=== PATIENT | female | born 1965 | race Two or more races ===

== ENCOUNTER 2021-07-17 16:32 | Inpatient (IN) ==
[2021-07-17] MEDS ORDERED: Lactated Ringers 1000 ml BAG IV.FLUID IV ONE (17:06)
[2021-07-17] MEDS ORDERED: Piperacillin/Tazobac ADVAN 3.375 GM in NS 0.9% 100 ml BAG 100 ML IV ONE (17:23)
[2021-07-17 17:42] LABS: ABS Lymphocytes 0.7 10^3/ul (1.0-4.8); ABS Monocytes 0.7 10^3/ul (0-0.8); ABS Neutrophils 11.2 10^3/ul (1.5-7.7); Eosinophil % 0.4 %; Hematocrit 40 % (35-47); Hemoglobin 14.2 g/dL (12.0-16.0); Lymphocyte % 5.4 %; Mean Corpuscular HGB Conc 35 g/dL (31-36); Mean Corpuscular Hemoglobin 33 pg (27-31); Mean Corpuscular Volume 95 fL (80-97); Mean Platelet Volume 7.9 fL (7.4-10.4); Platelet Count 288 10^3/uL (150-450); Red Blood Count 4.25 10^6 /uL (3.70-4.87); Red Cell Distribution Width 14 % (10-15); White Blood Count 12.7 10^3/uL (3.5-10.8)
[2021-07-17 17:55] LABS: Urine Appearance Cloudy; Urine Bilirubin Negative (Negative); Urine Blood 2+ (Negative); Urine Color Yellow; Urine Glucose Negative (Negative); Urine Ketones Trace (Negative); Urine Nitrite Negative (Negative); Urine Protein Negative (Negative); Urine Specific Gravity 1.012 (1.002-1.030); Urine Urobilinogen Negative (Negative)
[2021-07-17 17:57] LABS: Urine Bacteria 1+ (Absent); Urine Red Blood Cell 2+(6-10/hpf) (Absent); Urine Squamous Epithelial Cell Present (Absent); Urine White Blood Cell Trace(0-5/hpf) (Absent)
[2021-07-17 18:17] LABS: Potassium 3.8 mmol/L (3.5-5.0)
[2021-07-17 18:18] LABS: Albumin 4.2 g/dL (3.2-5.2); Albumin/Globulin Ratio 1.5 (1-3); C Reactive Protein 94.51 mg/L (<8.01); Calcium 9.3 mg/dL (8.6-10.3); Globulin 2.8 g/dL (2-4); Total Bilirubin 0.9 mg/dL (0.2-1.0); eGFR CKD-EPI 89.4 (>60)
[2021-07-17] MEDS ORDERED: Iohexol 300 (CONTRAST) 10 ML SDV IV ONE (18:22)
[2021-07-17] MEDS ORDERED: Morphine 2 MG/ML SYRINGE IV ONE (22:50)
[2021-07-17] MEDS ORDERED: Zosyn per Pharmacy NOTE FOLLOW UP SCH (23:00)
[2021-07-17] MEDS: ZOSYN 3.375 GM Q8H per EXTENDED INFUSION IV SCH (23:21)
[2021-07-17] MEDS ORDERED: Albuterol HFA INHALER 8 gm MDI INH PRN (23:53)
[2021-07-17] MEDS ORDERED: Albuterol HFA INHALER 8 gm MDI INH ONE (23:57)
[2021-07-18] MEDS ORDERED: Acetaminophen IV 1 GM/100ML 100 ML IV ONE (02:22)
[2021-07-18 05:02] LABS: ABS Lymphocytes 1.7 10^3/ul (1.0-4.8); ABS Monocytes 0.8 10^3/ul (0-0.8); ABS Neutrophils 8.2 10^3/ul (1.5-7.7); Eosinophil % 0.4 %; Hematocrit 38 % (35-47); Hemoglobin 12.8 g/dL (12.0-16.0); Lymphocyte % 15.5 %; Mean Corpuscular HGB Conc 34 g/dL (31-36); Mean Corpuscular Hemoglobin 33 pg (27-31); Mean Corpuscular Volume 97 fL (80-97); Mean Platelet Volume 7.8 fL (7.4-10.4); Platelet Count 234 10^3/uL (150-450); Red Blood Count 3.88 10^6 /uL (3.70-4.87); Red Cell Distribution Width 13 % (10-15); White Blood Count 10.8 10^3/uL (3.5-10.8)
[2021-07-18 05:10] LABS: INR 1.45 (0.86-1.15)
[2021-07-18 05:11] LABS: Activated Partial Thrombo Time 30.2 seconds (26.0-38.0)
[2021-07-18] MEDS: Heparin 5000 UNITS/ML 1 mL VIAL SUBCUT SCH ×3 (05:35→23:15)
[2021-07-18 05:38] LABS: Blood Urea Nitrogen 8 mg/dL (6-24); CO2 Carbon Dioxide 26 mmol/L (22-32); Calcium 8.6 mg/dL (8.6-10.3); Chloride 106 mmol/L (101-111); Glucose 113 mg/dL (70-100); Sodium 138 mmol/L (135-145); eGFR CKD-EPI 100.2 (>60)
[2021-07-18 05:41] LABS: Anion Gap 6 mmol/L (2-11)
[2021-07-18] MEDS: ZOSYN 3.375 GM Q8H per EXTENDED INFUSION IV SCH ×4 (06:19→23:15)
[2021-07-19] MEDS: Heparin 5000 UNITS/ML 1 mL VIAL SUBCUT SCH ×3 (06:19→22:46)
[2021-07-19 09:12] LABS: ABS Eosinophils 0.1 10^3/ul (0-0.6); ABS Lymphocytes 1.2 10^3/ul (1.0-4.8); ABS Monocytes 0.6 10^3/ul (0-0.8); ABS Neutrophils 5.5 10^3/ul (1.5-7.7); Hematocrit 37 % (35-47); Hemoglobin 12.6 g/dL (12.0-16.0); Lymphocyte % 16.5 %; Mean Corpuscular HGB Conc 35 g/dL (31-36); Mean Corpuscular Hemoglobin 33 pg (27-31); Mean Corpuscular Volume 95 fL (80-97); Mean Platelet Volume 7.7 fL (7.4-10.4); Nucleated Red Blood Cells % 0.1; Platelet Count 260 10^3/uL (150-450); Red Blood Count 3.85 10^6 /uL (3.70-4.87); Red Cell Distribution Width 13 % (10-15); White Blood Count 7.5 10^3/uL (3.5-10.8)
[2021-07-19 09:38] LABS: Calcium 8.8 mg/dL (8.6-10.3); Potassium 3.9 mmol/L (3.5-5.0); eGFR CKD-EPI 89.4 (>60)
[2021-07-19] MEDS: ZOSYN 3.375 GM Q8H per EXTENDED INFUSION IV SCH ×2 (10:04→18:19)
[2021-07-19] MEDS ORDERED: D5NS 0.9% 1000 ml BAG 1,000 ML IV SCH (14:00)
[2021-07-20] MEDS: ZOSYN 3.375 GM Q8H per EXTENDED INFUSION IV SCH ×2 (02:44→10:11)
[2021-07-20 06:19] LABS: ABS Eosinophils 0.2 10^3/ul (0-0.6); ABS Lymphocytes 1.4 10^3/ul (1.0-4.8); ABS Monocytes 0.5 10^3/ul (0-0.8); ABS Neutrophils 3.9 10^3/ul (1.5-7.7); Eosinophil % 3.5 %; Hematocrit 39 % (35-47); Hemoglobin 13.4 g/dL (12.0-16.0); Lymphocyte % 23.2 %; Mean Corpuscular HGB Conc 34 g/dL (31-36); Mean Corpuscular Hemoglobin 33 pg (27-31); Mean Corpuscular Volume 95 fL (80-97); Mean Platelet Volume 8.1 fL (7.4-10.4); Nucleated Red Blood Cells % 0.1; Platelet Count 313 10^3/uL (150-450); Red Blood Count 4.08 10^6 /uL (3.70-4.87); Red Cell Distribution Width 14 % (10-15); White Blood Count 6.1 10^3/uL (3.5-10.8)
[2021-07-20 06:39] LABS: Calcium 8.6 mg/dL (8.6-10.3); Magnesium 2.1 mg/dL (1.9-2.7); Potassium 3.8 mmol/L (3.5-5.0); eGFR CKD-EPI 96.9 (>60)
[2021-07-20] MEDS: Heparin 5000 UNITS/ML 1 mL VIAL SUBCUT SCH ×2 (07:42→16:14)
[2021-07-20 15:42] VITALS: BP 140/83
== END 2021-07-20 17:30 | disposition home or self-care (01) | DRG 720 ==
LOC: ED 16:32 → SUATTDRO 23:07 → EDHOLD 23:07 → SSU 07-18 00:30
PROVIDERS: ADMIT Internal Medicine; ATTEND Internal Medicine

== ENCOUNTER 2022-07-06 08:17 | Inpatient (IN) ==
[~2022-07-06 08:17] MED LIST: Buffered Lidocaine 1% SYRIN 1 ml INTRADERM ONE; Famotidine IV 10 MG/ML 2 ml VIAL (20 mg) IV ONE; Lactated Ringers 1000 ml BAG 1,000 ML IV SCH
[2022-07-06] MEDS ORDERED: ceFAZolin 2 GM in NS PREMIX 2 GM/100 ML BAG IVPB ONE (08:49)
[2022-07-06] MEDS ORDERED: Famotidine IV 10 MG/ML 2 ml VIAL (20 mg) ONE (08:49)
[2022-07-06] MEDS ORDERED: Lidocaine 2% PF 5 ML VIAL ONE (10:01)
[2022-07-06] MEDS ORDERED: Ondansetron 4 mg VIAL 2 MG/ML 2 ml VIAL ONE (10:04)
[2022-07-06] MEDS ORDERED: Dexamethasone IV 4 MG/ML VIAL 1 ml VIAL ONE (10:04)
[2022-07-06] MEDS ORDERED: Midazolam 2 mg/2 ml VIAL 1 mg/ml 2 ml VIAL (2 mg) ONE (10:24)
[2022-07-06] MEDS ORDERED: fentaNYL 100 mcg/2 ml 50 MCG/ML VIAL ONE (10:24)
[2022-07-06] MEDS ORDERED: Ropivacaine 5 MG/ML 20 ML VIAL 0.5% (100 MG) ONE (10:34)
[2022-07-06] MEDS ORDERED: Naloxone 0.4 mg VIAL 0.4 mg/ml 1 ml VIAL IV PRN (11:15)
[2022-07-06] MEDS ORDERED: Propofol 10 MG/ML 20 ML BTL ONE ×4 (11:54→13:05)
[2022-07-06] MEDS ORDERED: Acetaminophen IV 1 GM/100ML 1,000 MG/100 ML BAG IV ONE (12:02)
[2022-07-06] MEDS ORDERED: Ondansetron 4 mg VIAL 2 MG/ML 2 ml VIAL IV PRN (13:49)
[2022-07-06] MEDS ORDERED: Ondansetron ODT 4 mg TAB 4 MG TAB PO PRN (13:49)
[2022-07-06] MEDS ORDERED: Magnesium Hydroxide LIQ 30 ML UDC PO PRN (13:49)
[2022-07-06] MEDS ORDERED: Morphine 2 MG/ML SYRINGE IV PRN (13:49)
[2022-07-06] MEDS ORDERED: Lactulose 30 ml UDC PO PRN (13:49)
[2022-07-06] MEDS ORDERED: Albuterol HFA INHALER 8 gm MDI INH PRN (13:54)
[2022-07-06] MEDS: Lactated Ringers 1000 ml BAG 1,000 ML IV SCH (15:29)
[2022-07-06] MEDS: Mometasone/Formoter 100/5 MDI INH SCH (19:31)
[2022-07-06] MEDS: ceFAZolin 1 GM ADVAN 1 GM in NS 0.9% 50 ML 50 ML IVPB SCH (20:49)
[2022-07-06] MEDS: Magnesium Hydroxide LIQ 30 ML UDC PO SCH (20:50)
[2022-07-07] MEDS: Lactated Ringers 1000 ml BAG 1,000 ML IV SCH (01:41)
[2022-07-07] MEDS: ceFAZolin 1 GM ADVAN 1 GM in NS 0.9% 50 ML 50 ML IVPB SCH ×2 (04:10→11:34)
[2022-07-07 05:58] LABS: Hematocrit 35 % (35-47); Hemoglobin 11.7 g/dL (12.0-16.0); Mean Platelet Volume 7.8 fL (7.4-10.4); Platelet Count 257 10^3/uL (150-450)
[2022-07-07 06:18] LABS: Calcium 8.6 mg/dL (8.6-10.3); Creatinine, Serum 0.71 mg/dL (0.51-0.95); eGFR CKD-EPI 97.9 (>60)
[2022-07-07] MEDS: Magnesium Hydroxide LIQ 30 ML UDC PO SCH (07:43)
[2022-07-07] MEDS ORDERED: Vitamin THERAPEUTIC TAB PO SCH (09:00)
[2022-07-07 11:33] VITALS: BP 126/81
[2022-07-07] MEDS: Mometasone/Formoter 100/5 MDI INH SCH (12:00)
== END 2022-07-07 13:45 | disposition home or self-care (01) | DRG 302 ==
LOC: SSU → AA 08:17 → INTOOBSV 08:17
PROVIDERS: ADMIT Orthopaedic Surgery Adult Reconstructive Orthopaedic Surgery; ATTEND Orthopaedic Surgery Adult Reconstructive Orthopaedic Surgery

== ENCOUNTER 2022-12-14 06:13 | Inpatient (IN) ==
[~2022-12-14 06:13] MED LIST changes: -Famotidine IV 10 MG/ML 2 ml VIAL (20 mg) IV ONE; +Naloxone 0.4 mg VIAL 0.4 mg/ml 1 ml VIAL IV PRN; +Ondansetron 4 mg VIAL 2 MG/ML 2 ml VIAL IV PRN; +fentaNYL 100 mcg/2 ml 50 MCG/ML VIAL IV PRN; +oxyCODONE/Acetamin 5/325 mg TAB PO PRN
[2022-12-14 06:44] LABS: Rapid COVID-19 Molecular Undetected (Undetected)
[2022-12-14] MEDS ORDERED: ceFAZolin 2 GM PREMIX 2 GM/50 ML BAG ONE (07:11)
[2022-12-14] MEDS ORDERED: Lidocaine 2% PF 5 ML VIAL ONE (08:32)
[2022-12-14] MEDS ORDERED: Propofol 10 MG/ML 20 ML BTL ONE ×5 (08:32→12:03)
[2022-12-14] MEDS ORDERED: ROPIVACAINE 5 MG/ML 30 ML BTL (0.5%) ONE ×2 (08:54→09:24)
[2022-12-14] MEDS ORDERED: Midazolam 2 mg/2 ml VIAL 1 mg/ml 2 ml VIAL (2 mg) ONE ×2 (09:50→10:16)
[2022-12-14] MEDS ORDERED: Ketamine HCL 50 mg/ml 10 ml VIAL (500 MG) ONE (10:17)
[2022-12-14] MEDS ORDERED: Glycopyrrolate IV 0.2 MG/ML 1 ML VIAL ONE (10:18)
[2022-12-14] MEDS ORDERED: Dexamethasone IV 4 MG/ML VIAL 1 ml VIAL ONE (10:31)
[2022-12-14] MEDS ORDERED: Acetaminophen IV 1 GM/100ML 1,000 MG/100 ML BAG IV ONE (10:31)
[2022-12-14] MEDS ORDERED: Ondansetron 4 mg VIAL 2 MG/ML 2 ml VIAL ONE (10:31)
[2022-12-14] MEDS ORDERED: Ondansetron 4 mg VIAL 2 MG/ML 2 ml VIAL IV PRN (10:47)
[2022-12-14] MEDS ORDERED: Magnesium Hydroxide LIQ 30 ML UDC PO PRN (10:47)
[2022-12-14] MEDS ORDERED: Ondansetron ODT 4 mg TAB 4 MG TAB PO PRN (10:47)
[2022-12-14] MEDS ORDERED: Morphine 2 MG/ML SYRINGE IV PRN (10:47)
[2022-12-14] MEDS ORDERED: Lactulose 30 ml UDC PO PRN (10:47)
[2022-12-14] MEDS: Lactated Ringers 1000 ml BAG 1,000 ML IV SCH (14:15)
[2022-12-14] MEDS: ceFAZolin 1 GM ADVAN 1 GM in NS 0.9% 50 ML 50 ML IVPB SCH (17:24)
[2022-12-14] MEDS: Albuterol HFA INHALER 8 gm MDI INH PRN (20:04)
[2022-12-14] MEDS: Magnesium Hydroxide LIQ 30 ML UDC PO SCH (21:25)
[2022-12-15] MEDS: Lactated Ringers 1000 ml BAG 1,000 ML IV SCH (00:35)
[2022-12-15] MEDS: ceFAZolin 1 GM ADVAN 1 GM in NS 0.9% 50 ML 50 ML IVPB SCH ×2 (02:44→09:50)
[2022-12-15 06:35] LABS: Hematocrit 32.1 % (35-45); Hemoglobin 11.1 g/dL (11.5-14.3); Mean Platelet Volume 7.7 fL (7.5-11.2); Platelet Count 222 10^3/uL (150-450)
[2022-12-15 06:47] LABS: Calcium 8.3 mg/dL (8.6-10.3); Creatinine, Serum 0.81 mg/dL (0.51-0.95); Potassium 3.8 mmol/L (3.5-5.0); eGFR CKD-EPI 83.6 (>60)
[2022-12-15] MEDS: Magnesium Hydroxide LIQ 30 ML UDC PO SCH (07:27)
[2022-12-15] MEDS ORDERED: Vitamin THERAPEUTIC TAB PO SCH (09:00)
[2022-12-15] MEDS: Albuterol HFA INHALER 8 gm MDI INH PRN (09:55)
[2022-12-15 14:49] VITALS: BP 148/84
== END 2022-12-15 15:01 | disposition home or self-care (01) | DRG 302 ==
LOC: AA 06:13 → INTOOBSV 06:13 → SSU 13:47
PROVIDERS: ADMIT Orthopaedic Surgery Adult Reconstructive Orthopaedic Surgery; ATTEND Orthopaedic Surgery Adult Reconstructive Orthopaedic Surgery